=== PATIENT | male | born 1995 | race African-American/Black ===

== ENCOUNTER 2018-01-29 02:26 | Emergency (ER) | payer MEDICAID ==
[~2018-01-29] VITALS: Ht 172.7 cm; Wt 66.2 kg
[~2018-01-29 02:26] MED LIST: HYDR-4383 PO
[2018-01-29 02:33] VITALS: BP 126/72
[2018-01-29] MEDS ORDERED: HYDR-4383 PO (02:40)
[2018-01-29] MEDS ORDERED: naproxen 500mg tablet PO ONE (02:40)
[2018-01-29] MEDS ORDERED: NAPR-56 PO (02:40)
[2018-01-29] MEDS ORDERED: SULF1TAB49 PO (02:40)
[2018-01-29] MEDS ORDERED: sulfamethoxazole/trimethoprim DS (800/160mg) tablet PO ONE (02:40)
== END 2018-01-29 02:49 | disposition home or self-care (01) ==
LOC: ER 02:27
DX: L03.317 Cellulitis of buttock (principal)
CPT/HCPCS: 99283